=== PATIENT | female | born 1955 | race Caucasian/White ===

== ENCOUNTER 2016-07-24 06:33 | Day surgery (SDC) | payer OTHER ==
[2016-07-24] MEDS ORDERED: Midazolam 2 MG/2 ML VIAL ONE (07:32)
[2016-07-24] MEDS ORDERED: Propofol 10 mg/ml Inj (20 ML) ONE (07:32)
[2016-07-25 15:48] VITALS: TEMP 97.8
[2016-07-25 15:52] VITALS: BP 115/75; PULSE 71; RESP 12; O2SAT 100
== END 2016-07-24 09:50 | disposition home or self-care (01) ==
LOC: C.ENDO 06:33
PROVIDERS: ATTEND Internal Medicine Gastroenterology
DX: Z12.11 Encounter for screening for malignant neoplasm of colon (principal); K64.4 Residual hemorrhoidal skin tags; K64.8 Other hemorrhoids
CPT/HCPCS: 45378; J2250; J2704